=== PATIENT | female | born 1955 | race Caucasian/White ===

== ENCOUNTER 2016-10-24 10:00 | Inpatient (IN) | payer MEDICARE, BC ==
[~2016-10-24] VITALS: Ht 166.4 cm; Wt 103.0 kg
--- NOTE | ~2016-10-24 | OR ---
PATIENT'S NAME: ALECIA HERNANDEZ [facility] AGE: 61 Y [address] ROOM: [place] [address] LOCATION: [facility] ADMIT DATE: 10/31/2016 OR/Procedure Report DISCHARGE DATE: FAMILY PHYSICIAN: Gonzalo Sheehan MD ATTENDING PHYSICIAN: JA AZUL SURGEON: Ja Azul MD LAST SCOURER: 1. DONTRELL Dean. 2. Tod Jo CST/MEDICAL TRANSCRIPTION SUPERVISOR. DATE OF PROCEDURE: 10/31/2016 PRE-OP DIAGNOSIS: Degenerative joint disease, right knee. POST-OP DIAGNOSIS: Degenerative joint disease, right knee. OPERATION: Right total knee arthroplasty with computer navigation. ANESTHESIA: Spinal anesthesia plus adductor canal block plus periarticular local anesthesia (ropivacaine with epinephrine and Toradol). ESTIMATED BLOOD LOSS: Less than 10 mL. DRAIN: None. SPECIMEN: None. COMPLICATIONS: None. IMPLANT SYSTEM: Cate Triathlon: Size 4 posterior stabilized right femoral component. Size 3 universal modular tibial baseplate. 11 mm posterior stabilized size 3 X3 tibial polyethylene insert. 29 mm oval X3 patella component (triple pegged). INDICATIONS FOR SURGERY: Alecia Hernandez is a 61-year-old female who presents with advanced right knee degenerative joint disease and associated severely compromised activities of daily living. The patient has decided to proceed with knee replacement after having been thoroughly counseled regarding the associated risks, benefits, and limitations. We have specifically reviewed the risks and implications of infection, deep venous thrombosis, pulmonary embolism, mortality, neurovascular complications, blood transfusion (and associated potential for disease transmission or transfusion reaction), stiffness, instability, mechanical deterioration of the components (due to wear and or loosening), and the potential need for revision. We have also emphasized the importance of active involvement and compliance with post- operative physical therapy as a means of optimizing range of motion and PATIENT'S NAME: ALECIA HERNANDEZ [facility] AGE: 61 Y [address] ROOM: [place] [address] LOCATION: [facility] ADMIT DATE: 10/31/2016 OR/Procedure Report DISCHARGE DATE: FAMILY PHYSICIAN: Gonzalo Sheehan MD ATTENDING PHYSICIAN: JA AZUL functional recovery. Informed consent has been granted. DESCRIPTION OF PROCEDURE: The patient was positioned supine after administration of anesthesia and prophylactic antibiotics. A well-padded pneumatic tourniquet was placed around the right proximal thigh, and the right lower extremity was prepped and draped with vigilant sterile technique. The patient's name as well as the intended operative side and procedure were confirmed with a verbal time-out involving myself, the circulating nurse, the scrub nurse, and the anesthesiologist. Examination under anesthesia demonstrated no active skin lesions or masses. There was no erythema. There was no abnormal warmth. There was a moderate effusion. Range of motion under anesthesia was from a 12 degree flexion contracture to 90 degrees of flexion. There was no ligamentous insufficiency. The right lower extremity was elevated and exsanguinated with an Esmarch wrap, and the pneumatic tourniquet was inflated to 300mmHg. The knee was approached through a longitudinal midline incision. A medial parapatellar arthrotomy was performed and the patella was everted. Examination of the joint space demonstrated a moderate amount of benign-appearing translucent synovial fluid. There was mild generalized nonproliferative synovitis. There was a 5 x 10 x 5 mm loose body at the anterior aspect of the intercondylar notch. There was a 10 mm diameter osseous loose body at the posterior aspect of the medial compartment. There were large osteophytes at the intercondylar notch, but the cruciate ligaments were intact. There was full-thickness loss of articular cartilage involving the entire medial femoral condyle and 90% of the medial tibial plateau. There was a 2 cm diameter region of full-thickness articular cartilage loss at the posterior aspect of the lateral femoral condyle. There were moderate grade 3 degenerative changes involving the central 50% of the lateral tibial plateau. There was full-thickness fissuring at the medial aspect of the lateral tibial plateau. There was a small osteophyte at the lateral tibial plateau. There was a large osteophyte at the cephalad aspect of the femoral trochlea. There were two separate 1 cm diameter regions of full-thickness articular cartilage loss at the femoral trochlea (one centrally and one inferomedially). There was high-grade partial-thickness articular cartilage loss involving the majority of the inferior half of the patella. There were moderate-sized osteophytes at the superior and inferior margins of the patella. There was mild inner perimeter tearing of the lateral meniscus. The anterior half of the medial meniscus was truncated. There was moderate degenerative tearing at the posterior half of the medial meniscus. Remnants of the menisci and cruciate ligaments were excised. The [employer] computer navigation femoral tracker was pinned in place at the distal aspect of the femoral trochlea. Absence of motion between the femur and the tracking PATIENT'S NAME: ALECIA HERNANDEZ [facility] AGE: 61 Y [address] ROOM: [address] [address] LOCATION: [facility] ADMIT DATE: 10/31/2016 OR/Procedure Report DISCHARGE DATE: FAMILY PHYSICIAN: Gonzalo Sheehan MD ATTENDING PHYSICIAN: JA AZUL device was confirmed manually and visually. Femoral osseous landmarks were obtained in order to calibrate the computer navigation system. Landmarks included the center of rotation of the ipsilateral hip, the center-point of the distal femur, the femoral AP axis, 57 points on the medial femoral condyle articular surface, and 57 points on the lateral femoral condyle articular surface. The [employer] computer navigation system was subsequently utilized to position the distal femoral resection block such that the distal femoral resection was performed perfectly perpendicular to the femoral mechanical axis. The distal femoral resection was performed with a [employer] oscillating saw. The [employer] computer navigation tibial tracker was pinned in place at the anterior aspect of the tibial plateau. Absence of motion between the tibia and the tracking device was confirmed manually and visually. Tibial osseous landmarks were obtained in order to calibrate the computer navigation system. Landmarks included the center-point of the tibial plateau, the AP tibial axis, 57 points on the medial tibial plateau articular surface, 57 points on the lateral tibial plateau articular surface, the medial malleolus, and the lateral malleolus. The [employer] computer navigation system was subsequently utilized to position the proximal tibial resection block such that the proximal tibial resection was performed perfectly perpendicular to the tibial mechanical axis. The proximal tibial resection was performed with a [employer] Precision oscillating saw. Perpendicularity of the tibial resection with respect to the tibial shaft axis was reconfirmed by inserting a spacer- block attached to an extramedullary guide scout. External rotation of the anterior and posterior femoral resections was set parallel to the epicondylar axis and carefully adjusted in order to create a rectangular flexion gap. The box resection was performed with a reciprocating saw. Anterior and posterior chamfer resections were performed with the oscillating saw. Posterior condyle osteophytes were excised with an osteotome. All other osteophytes were excised with a rongeur. Resection of all remnants of the menisci was reconfirmed. Flexion and extension gaps were confirmed to be symmetric and well balanced with a spacer-block technique. The patella resection was performed with an oscillating saw such that the composite thickness of the reconstructed patella was equivalent to the thickness of the twenty-nine palms patella. Patella tracking was optimal and there was no need for a lateral retinacular release. All trial components were removed and all prepared osseous surfaces were thoroughly irrigated with pulsatile saline lavage and dried prior to cementing all three components in a single stage using Cate Simplex cement containing pre-mixed tobramycin. All extruded excess cement was removed. The entire joint space was thoroughly inspected and thoroughly irrigated with PATIENT'S NAME: ALECIA HERNANDEZ [facility] AGE: 61 Y [address] ROOM: [place] [address] LOCATION: [facility] ADMIT DATE: 10/31/2016 OR/Procedure Report DISCHARGE DATE: FAMILY PHYSICIAN: Gonzalo Sheehan MD ATTENDING PHYSICIAN: JA AZUL bacteriostatic pulsatile saline lavage to assure that there was no residual debris of any sort. Final range of motion was from full extension (with no passive hyperextension) to 130 degrees of flexion. Patella tracking was reconfirmed to be optimal. There was very good anteroposterior stability at 90 degrees of flexion. There was 0 mm of medial lift-off in full extension. There was 2 mm of medial lift- off in mid flexion. There was less than 1 mm of lateral lift-off to in mid flexion. The arthrotomy was closed with multiple simple and [id number] interrupted #1 Vicryl. Subcutaneous tissues were thoroughly re-irrigated with bacteriostatic pulsatile saline lavage. Subcutaneous tissues were re- approximated with simple buried interrupted #0 Vicryl sutures. The skin was closed with simple buried interrupted 2-0 Vicryl sutures followed by surgical toi. The dressing consisted of Xeroform gauze, 4x4 gauze, ABD pads and two 6-inch Gilberto Wraps. There were no intra-operative complications. It should be noted that the physician's sales assistant entertainment and media played an active, integral role throughout this entire operation. By providing expert retraction, they greatly facilitated and expedited safe and effective exposure of the distal femur, proximal tibia and patella for preparation and implantation of the components. They were also actively involved in the patient's positioning, prepping and draping, as well as wound closure. MD JESSICA THOMASON/martha /[id number] d: 10/31/16 1527 t: 11/05/16 1149, OPERATIVE SUMMARY
--- NOTE | ~2016-10-24 | DS ---
PATIENT'S NAME: ANNETTE HERNANDEZ [facility] AGE: 61 Y [address] ROOM: [place] [address] LOCATION: [facility] ADMIT DATE: 10/31/2016 Discharge Summary DISCHARGE DATE: 11/03/2016 FAMILY PHYSICIAN: Gonzalo Sheehan MD ATTENDING PHYSICIAN: Ja Azul PRIMARY DIAGNOSIS: Degenerative joint disease of the right knee. SECONDARY DIAGNOSIS: Include: 1. Diabetes mellitus, type 2. 2. Hypertension. 3. Obesity, body mass index of 39. PROCEDURE PERFORMED: Right total knee arthroplasty with computer navigation. HISTORY: The patient is a 61-year-old female who presents with advanced right knee degenerative joint disease and associated severely compromised activities of daily living. The patient has decided to proceed with total knee arthroplasty after having been thoroughly counseled regarding the risks, benefits, limitations and alternatives. Please refer to the outpatient clinic notes and admission history and physical for this patient. HOSPITAL COURSE: The patient underwent a right total knee arthroplasty on 10/31/2016 without complications. Spinal anesthesia plus adductor canal block plus periarticular local anesthesia was utilized. The patient received 24 hours of perioperative prophylactic antibiotics and remained hemodynamically stable, neurovascularly intact throughout the entire hospital course. The postoperative prophylactic deep venous thrombosis prophylaxis consisted of aspirin 325, early mobilization, and pneumatic compression devices. Daily physical therapy for gait training, transfer training range of motion and quadriceps isometric exercises were received. The patient progressed well in physical therapy. On the date of discharge, 11/03/2016, the incision at the knee was healing well and showed no signs of infection. DISPOSITION: Home. DISCHARGE ACTIVITY: The patient is to bear weight as tolerated with range of motion and quadriceps isometric exercises as instructed. The operative extremity is to be elevated at least 90% of the day. There is to be sterile 4x4 gauze dressings to the incision daily. Dr. Azul is to be notified immediately if there are any increased pain, fevers, chills, erythema, or drainage. DISCHARGE MEDICATIONS: Include: 1. Aspirin 325 take 1 tab p.o. daily for DVT prevention. PATIENT'S NAME: ANNETTE HERNANDEZ [facility] AGE: 61 Y [address] ROOM: [place] [address] LOCATION: [facility] ADMIT DATE: 10/31/2016 Discharge Summary DISCHARGE DATE: 11/03/2016 FAMILY PHYSICIAN: Gonzalo Sheehan MD ATTENDING PHYSICIAN: Ja Azul 2. Valium 5 mg take 1/2 tablet to 1 tablet every 6 hours as needed for spasms. 3. Nucynta 50 mg take 1 to 2 tablets p.o. every 4 hours as needed for pain. FOLLOWUP: Follow up date is scheduled for November 08, 2016 for initial postoperative evaluation and x-rays at that time. DONTRELL ALVARADO FOR JA AZUL MD TLB/modl /[id number] d: 11/09/16 0410 t: 11/18/16 2220, DISCHARGE SUMMARY
[~2016-10-24 10:00] MED LIST: AMBIEN10 MG PO; CELEBREX200 MG PO; CIPRO500 MG PO; COLACE100 MG PO; ESTER-C 500 MG1 EACH PO; FLEXERIL10 MG PO; GLUCOPHAGE500 MG PO; HYDROCHLOROTH12.5 MG PO; HYLAND'S LEG CRAMPS PO; MELATONIN3 MG PO; MONOPRIL10 MG PO; MULTI-DAY VITA1 EACH PO; NEURONTIN300 MG PO; NORCO 5-325 TA1 EACH PO; NUCYNTA50 MG PO; OSCAL + D500 MG PO; PRINIVIL OR ZES10 MG PO; TYLENOL EXTRA500 MG PO; XARELTO10 MG PO
--- NOTE | 2016-10-31 11:15 | NUR ---
Introduced self/role to patient and her Jonatan. They both stated the plan was for her to go to the [facility] once she was discharge from here and she has already talked to her family doctor, Dr Sheehan about this. She went home after her last knee surgery but those that went to the swing beds seem to be doing better. And her has some health issues which limit what he can do to help her. I told her I would be back again to visit about discharge planning after see how she is getting along. Wrote my name on her marker board, will follow. Left a note on the chart regarding patient's wishes.
--- NOTE | 2016-10-31 16:33 | NUR ---
Significant Event: PT A&O x3. VSS, on room air. Dressing intact to R)knee. IV patent to R)FA. Pain well controlled with nucynta. Up to chair with walker, gait belt and 1 assist. EZ wrap ice to R)knee. Patient states has hx of nausea issues, zofran given x1. Void x1 after arrival to floor. Nibbling on crackers, pudding. Follow up:
--- NOTE | 2016-10-31 17:37 | NUR ---
Introduced self/role to patient. Reviewed and encouraged use of IS. Demonstrates with good technique. Has foot pumps and TEDs on bilat. Denies DME needs. Will follow and assist as advised.
--- NOTE | 2016-11-01 05:37 | NUR ---
Shift Summary: Patient can ambulate to the BR with standby assist. Voiding without difficulty. Tolerating regular diet well. Minimal pain. Gave a pain pill at bedtime.
--- NOTE | 2016-11-01 17:56 | NUR ---
Significant Event: Ambulates with SBA and walker. Dressing C/D/I. Ez wrap ice at all times. Nucynta 50mg last at 1540, Valium 5mg at 1633, Dilaudid 0.2mg IVP and Toradol 15mg IVP at 1645, and Tylenol 1000mg PO at 1750. Plans to dismiss home . Follow up:
--- NOTE | 2016-11-02 06:09 | NUR ---
Significant Event: Dressing is clean, dry and intact. CSM WNL. Voids without diffiuculty. 1 assist with transfrs. Nucynata last at 0352. Ambien at 2147. Follow up:
--- NOTE | 2016-11-02 11:15 | NUR ---
Followed up with patient from our conversation Monday. She stated the plan was to go home now, on . She is doing much better then she expected and things are going better compared to her last surgery. She reports she has friends to help her if she calls them. Their house is handicap assessable and she has her DME. No barriers to going home at this time.
--- NOTE | 2016-11-02 13:18 | NUR ---
Significant Event: AOx3. VSS. CSM WNL. Up with 1 assist. Dressing C/D/I. AC&HS accuchecks. Nucynta given for pain. Patient will go home tomorrow with . Follow up:
--- NOTE | 2016-11-03 03:02 | NUR ---
Significant Event: AOx3, FAC, VERGARA with exception of RLE. VSS on RA. CSM WNL. Up with 1 assist, ambulates well. Dressing C/D/I. AC/HS accuchecks, BG@HS 119. 1x Nucynta PRN for pain. Follow up: Pt to be discharged today.
[2016-11-03] MEDS ORDERED: TYLENOL EXTRA500 MG PO (10:52)
[2016-11-03] MEDS ORDERED: ECOTRIN325 MG PO (10:53)
[2016-11-03] MEDS ORDERED: NEURONTIN300 MG PO (10:55)
[2016-11-03] MEDS ORDERED: PEPCID40 MG PO (10:55)
[2016-11-03] MEDS ORDERED: VALIUM5 MG PO (10:56)
[2016-11-03] MEDS ORDERED: NUCYNTA50 MG PO (10:58)
--- NOTE | 2016-11-03 14:20 | NUR ---
Significant Event: Ambulates with SBA and walker. Dressing C/D/i. Ez wrap ice at all times. Voids without difficulty. Nucynta 50mg for pain control, last at 1130. No IV access. Мария education given with dismissal instructions, patient and state understanding. Dismissed to home with family. Follow up:
== END 2016-11-03 12:02 | disposition disaster alternative care site (69) | DRG 470 ==
LOC: G3N 10-31 05:07
PROVIDERS: ADMIT Orthopaedic Surgery
PROC: 0SRC0J9 Replacement of Right Knee Joint with Synthetic Substitute, Cemented, Open Approach (ICD-10-PCS; principal; 2016-10-31)
PROC: 8E0YXBZ Computer Assisted Procedure of Lower Extremity (ICD-10-PCS; principal; 2016-10-31)
DX: M17.11 Unilateral primary osteoarthritis, right knee (principal); I10 Essential (primary) hypertension; E11.9 Type 2 diabetes mellitus without complications; E66.09 Other obesity due to excess calories; Z68.39 Body mass index [BMI] 39.0-39.9, adult; L57.0 Actinic keratosis; M65.311 Trigger thumb, right thumb; G47.00 Insomnia, unspecified; Z79.84 Long term (current) use of oral hypoglycemic drugs; Z88.8 Allergy status to other drugs, medicaments and biological substances; Z96.652 Presence of left artificial knee joint; Z96.643 Presence of artificial hip joint, bilateral
CPT/HCPCS: C1713; C1776; J0690; J1170; J1885; J2001; J2250; J2405; J2795; J7030; J7120